=== PATIENT | female | born 1950 | race Caucasian/White ===

== ENCOUNTER → 2017-12-29 | Outpatient (CLI) | payer MEDICARE, OTHER | LOC: COL.PUL 12:40 | DX: R06.02 Shortness of breath (principal) | CPT/HCPCS: J7674 ==

== ENCOUNTER 2018-01-23 09:00 | Observation (INO) | payer MEDICARE, OTHER ==
[~2018-01-23] VITALS: Ht 182.9 cm; Wt 83.2 kg
[2018-01-23] VITALS (120 sets, daily range): BP systolic 141–170; BP diastolic 96–106; PULSE 85–108; TEMP 97.6–98; O2SAT 86–100
[2018-01-23] MEDS ORDERED: ELIQUIS 2.5 PO (09:57)
[2018-01-23] MEDS ORDERED: PLAVIX 75MG TAB75 MG PO (09:58)
[2018-01-23] MEDS ORDERED: VITAMIN D 1001000 IU PO (09:59)
[2018-01-23] MEDS ORDERED: ZOCOR 40MG40 MG PO (10:01)
[2018-01-23] MEDS ORDERED: FLEXERIL 1010 MG/TAB PO (10:01)
== END 2018-01-23 16:30 | disposition home or self-care (01) ==
LOC: ICU 09:00
DX: Z01.810 Encounter for preprocedural cardiovascular examination (principal); I73.9 Peripheral vascular disease, unspecified; J44.9 Chronic obstructive pulmonary disease, unspecified; I10 Essential (primary) hypertension; Z88.6 Allergy status to analgesic agent; Z79.01 Long term (current) use of anticoagulants; Z79.02 Long term (current) use of antithrombotics/antiplatelets; Z88.0 Allergy status to penicillin; Z88.8 Allergy status to other drugs, medicaments and biological substances; Z86.718 Personal history of other venous thrombosis and embolism; Z82.49 Family history of ischemic heart disease and other diseases of the circulatory system

== ENCOUNTER → 2018-02-14 | Outpatient (CLI) | payer MEDICARE, OTHER ==
[~2018-02-14] MED LIST: ELIQUIS 2.5 PO; FLEXERIL 1010 MG/TAB PO; PLAVIX 75MG TAB75 MG PO; VITAMIN D 1001000 IU PO; ZOCOR 40MG40 MG PO
[2018-02-14 15:30] LABS: HEMOGLOBIN 10.9 g/dl (12.5-16.0); MEAN CELL VOLUME 84 fl (80.0-100.0); MEAN CORPUSCULAR HEMOGLOBIN 27 pg (27.0-31.0); MEAN CORPUSCULAR HGB CONC 32 g/dl (33.0-37.0); MEAN PLATELET VOLUME 10.8 fl (7.4-10.4); PLATELET COUNT 339 K/mm3 (130-400); RED BLOOD COUNT 4.04 M/mm3 (4.10-5.30); REDCELL DISTRIBUTION WIDTH-CV 13.8 % (11.5-14.5)
[2018-02-14 15:39] LABS: ANION GAP 11 mmol/L (7-16); BLOOD UREA NITROGEN 13 mg/dL (7-17); CALCIUM 9.3 mg/dL (8.4-10.2); CARBON DIOXIDE 24 mmol/L (22-30); CHLORIDE 101 mmol/L (98-107); CREATININE, serum 0.69 mg/dL (0.52-1.25); GLUCOSE 93 mg/dL (74-106); POTASSIUM 3.9 mmol/L (3.4-5.0); SODIUM 136 mmol/L (137-145)
[2018-02-14 15:52] LABS: TROPONIN-I < 0.012 ng/mL (0.000-0.034)
[2018-02-14 16:28] LABS: HEMATOCRIT 34.1 % (37.0-47.0)
== END ==
LOC: COL.RAD 14:45
PROVIDERS: Internal Medicine Interventional Cardiology
DX: R06.02 Shortness of breath (principal); I77.4 Celiac artery compression syndrome
CPT/HCPCS: Q9967

== ENCOUNTER 2018-02-27 07:56 | Outpatient (RCR) | payer MEDICARE, OTHER ==
[2018-03-24] MEDS ORDERED: ELIQUIS 5MG PO (11:30)
[2018-03-24] MEDS ORDERED: NITROSTAT0.4 MG/TAB SL (11:31)
[2018-04-04] MEDS ORDERED: AMOXICILLIN 8751 TAB PO (19:49)
== END 2018-05-28 | disposition home or self-care (01) ==
LOC: WSST
DX: R13.12 Dysphagia, oropharyngeal phase (principal)
CPT/HCPCS: G8996-GN; G8997-GN

== ENCOUNTER → 2018-03-07 | Outpatient (CLI) | payer MEDICARE, OTHER | LOC: COL.RAD 08:14 | DX: R13.12 Dysphagia, oropharyngeal phase (principal) | CPT/HCPCS: G8996-GN; G8997-GN; G8998-GN ==

== ENCOUNTER 2018-03-23 11:48 | Day surgery (SDC) | payer MEDICARE, OTHER ==
[2018-03-23] VITALS (11 sets, daily range): BP systolic 105–148; BP diastolic 64–97; PULSE 63–98; TEMP 98–98.7
[~2018-03-23] VITALS: Ht 183 cm; Wt 79.8 kg
[2018-03-23 13:05] LABS: HEMOGLOBIN 10.4 g/dl (12.5-16.0); MEAN CELL VOLUME 81 fl (80.0-100.0); MEAN CORPUSCULAR HEMOGLOBIN 26 pg (27.0-31.0); MEAN CORPUSCULAR HGB CONC 31 g/dl (33.0-37.0); PLATELET COUNT 302 K/mm3 (130-400); RED BLOOD COUNT 4.07 M/mm3 (4.10-5.30); REDCELL DISTRIBUTION WIDTH-CV 14.3 % (11.5-14.5)
[2018-03-23 13:06] LABS: HEMATOCRIT 33.1 % (37.0-47.0)
[2018-03-23 13:10] LABS: INR 1.2 (0.8-3.0); PROTHROMBIN TIME 13.4 SECONDS (9.7-12.8)
[2018-03-23 13:20] LABS: CALCIUM 9.3 mg/dL (8.4-10.2); CREATININE, serum 0.74 mg/dL (0.52-1.25); POTASSIUM 4.1 mmol/L (3.4-5.0)
[2018-03-24 05:02] VITALS: BP 120/71; PULSE 96; TEMP 98.7
[2018-03-24 07:30] VITALS: BP 121/87; PULSE 91; TEMP 97.7
[2018-03-24 09:12] LABS: BASO # 0.1 (0.0-0.2); BASO % 0.8 % (0.0-2.0); EOS # 0.3 (0.0-0.7); EOS % 4.2 % (0-4.0); GRAN # 3.7 (1.4-6.5); GRAN % 56.8 % (42.2-75.2); HEMOGLOBIN 10.5 g/dl (12.5-16.0); LYMPH # 1.9 (1.2-3.4); LYMPH % 28.9 % (20.0-51.0); MEAN CELL VOLUME 81 fl (80.0-100.0); MEAN CORPUSCULAR HEMOGLOBIN 26 pg (27.0-31.0); MEAN CORPUSCULAR HGB CONC 32 g/dl (33.0-37.0); MEAN PLATELET VOLUME 10.8 fl (7.4-10.4); MONO # 0.6 (0.1-0.6); PLATELET COUNT 313 K/mm3 (130-400); REDCELL DISTRIBUTION WIDTH-CV 14.5 % (11.5-14.5)
[2018-03-24 09:14] LABS: HEMATOCRIT 33.2 % (37.0-47.0)
[2018-03-24 09:22] LABS: CALCIUM 9.2 mg/dL (8.4-10.2); CREATININE, serum 0.71 mg/dL (0.52-1.25); POTASSIUM 4.1 mmol/L (3.4-5.0)
[2018-03-24] MEDS ORDERED: ELIQUIS 5MG PO (11:30)
[2018-03-24] MEDS ORDERED: NITROSTAT0.4 MG/TAB SL (11:31)
== END 2018-03-24 12:33 | disposition home or self-care (01) ==
LOC: COL.CAR 11:48 → MEDICAL 17:11 → COL.CAR 17:11 → MEDICAL 17:12 → COL.CAR 03-24 12:33
PROVIDERS: Internal Medicine Cardiovascular Disease; Internal Medicine Interventional Cardiology
DX: I25.110 Atherosclerotic heart disease of native coronary artery with unstable angina pectoris (principal); I73.9 Peripheral vascular disease, unspecified; Z82.49 Family history of ischemic heart disease and other diseases of the circulatory system; I10 Essential (primary) hypertension; Z86.718 Personal history of other venous thrombosis and embolism; J44.9 Chronic obstructive pulmonary disease, unspecified; E78.5 Hyperlipidemia, unspecified; Z79.01 Long term (current) use of anticoagulants; Z88.8 Allergy status to other drugs, medicaments and biological substances; Z79.899 Other long term (current) drug therapy
CPT/HCPCS: C9600; J1644; J2250; J3010; Q9967

== ENCOUNTER 2018-03-27 16:53 | Emergency (ER) | payer MEDICARE, OTHER ==
[~2018-03-27] VITALS: Ht 182.9 cm; Wt 79.5 kg
[~2018-03-27 16:53] MED LIST changes: +ELIQUIS 5MG PO; +NITROSTAT0.4 MG/TAB SL
[2018-03-27 17:05] VITALS: TEMP 97.8
[2018-03-27 17:35] LABS: COLLECTION METHOD CLEAN CATCH
[2018-03-27 17:40] LABS: BASO # 0.1 (0.0-0.2); BASO % 0.7 % (0.0-2.0); EOS # 0.3 (0.0-0.7); EOS % 3.7 % (0-4.0); GRAN % 60.6 % (42.2-75.2); LYMPH # 2.2 (1.2-3.4); LYMPH % 26.3 % (20.0-51.0); MEAN CELL VOLUME 82 fl (80.0-100.0); MEAN CORPUSCULAR HEMOGLOBIN 25 pg (27.0-31.0); MEAN CORPUSCULAR HGB CONC 31 g/dl (33.0-37.0); MONO # 0.7 (0.1-0.6); MONO % 8.6 % (1.7-9.3); PLATELET COUNT 350 K/mm3 (130-400); RED BLOOD COUNT 4.35 M/mm3 (4.10-5.30); REDCELL DISTRIBUTION WIDTH-CV 14.3 % (11.5-14.5)
[2018-03-27 17:41] LABS: HEMATOCRIT 35.5 % (37.0-47.0)
[2018-03-27 17:45] LABS: MUCOUS Present /lpf; PH 6 (5-8); SQUAMOUS EPITHELIAL None Seen /hpf; URINE APPEARANCE Clear; URINE BACTERIA None Seen /hpf; URINE BILIRUBIN Negative (NEGATIVE); URINE BLOOD Negative (NEGATIVE); URINE COLOR Yellow; URINE GLUCOSE Negative (NEGATIVE); URINE KETONE Negative (NEGATIVE); URINE LEUKOCYTE ESTERASE Negative (NEGATIVE); URINE NITRATE Negative (NEGATIVE); URINE PROTEIN(semi-quant) Negative (NEGATIVE); URINE RBC 0-2 /hpf; URINE UROBILINOGEN Negative (NEGATIVE)
[2018-03-27 17:54] LABS: ALBUMIN 4.4 gm/dL (3.5-5.0); BILIRUBIN,TOTAL 0.2 mg/dL (0.0-1.0); CALCIUM 9.7 mg/dL (8.4-10.2); CREATININE, serum 0.79 mg/dL (0.52-1.25); POTASSIUM 3.9 mmol/L (3.4-5.0); TOTAL PROTEIN 7.5 gm/dL (6.4-8.2)
[2018-03-27 18:06] LABS: TROPONIN-I 0.028 ng/mL (0.000-0.034)
[2018-03-27 20:20] VITALS: BP 140/106; PULSE 118
[2018-03-27 20:37] LABS: TRICYCLIC ANTIDEPRESS URINE NEGATIVE
== END 2018-03-27 20:20 | disposition home or self-care (01) ==
LOC: COL.ER 16:53
PROVIDERS: Emergency Medicine
DX: R00.0 Tachycardia, unspecified (principal); Z86.718 Personal history of other venous thrombosis and embolism; Z86.711 Personal history of pulmonary embolism; Z95.5 Presence of coronary angioplasty implant and graft; Z79.02 Long term (current) use of antithrombotics/antiplatelets; Z79.01 Long term (current) use of anticoagulants; Z88.0 Allergy status to penicillin; Z88.6 Allergy status to analgesic agent; Z88.5 Allergy status to narcotic agent
CPT/HCPCS: Q9967

== ENCOUNTER 2018-04-04 17:55 | Emergency (ER) | payer MEDICARE, OTHER ==
[~2018-04-04] VITALS: Ht 182.9 cm; Wt 81.4 kg
[2018-04-04 17:58] VITALS: TEMP 98.3
[2018-04-04] MEDS ORDERED: AMOXICILLIN 8751 TAB PO (19:49)
[2018-04-04 20:12] VITALS: BP 147/109; PULSE 98
== END 2018-04-04 20:10 | disposition home or self-care (01) ==
LOC: COL.ER 17:55
DX: S01.551A Open bite of lip, initial encounter (principal); Z23 Encounter for immunization; Z79.01 Long term (current) use of anticoagulants; Z86.711 Personal history of pulmonary embolism; W54.0XXA Bitten by dog, initial encounter

== ENCOUNTER → 2019-03-29 | Outpatient (CLI) | payer MEDICARE, OTHER ==
[2019-03-29] VITALS (8 sets, daily range): BP systolic 141–168; BP diastolic 90–100; PULSE 57–66
[~2019-03-29] VITALS: Ht 182.9 cm; Wt 83.5 kg
[~2019-03-29] MED LIST changes: +AMOXICILLIN 8751 TAB PO; +BIOTIN2500 MCG PO; +FERROUS SU325 MG/TAB; +MULTI VITAMINS1 TAB PO; +NASAREL0.025 MG/1 NAS; +PRILOSEC 20MG20 MG PO; +PROAIR HFA0.09 MG/AC IH; +TYLENOL PM EXTR1 TA1 PO; +VITAMIN C500 MG PO
[2019-03-29 09:42] LABS: INR 0.9 (0.8-3.0); PROTHROMBIN TIME 10.3 SECONDS (9.7-12.8)
--- NOTE | 2019-03-29 10:15 | NUR ---
pt in ultrasound room, waiting for Radiologist
--- NOTE | 2019-03-29 10:35 | NUR ---
procedure started by Dr Al
--- NOTE | 2019-03-29 10:45 | NUR ---
procedure finished, liver tissue in formulin, taken to lab.pressure applied over site as instructed and bandaid on
== END ==
LOC: COL.RAD 03-14 11:45
PROVIDERS: Internal Medicine Gastroenterology
DX: K74.5 Biliary cirrhosis, unspecified (principal)

== ENCOUNTER 2019-07-25 11:31 | Day surgery (SDC) | payer MEDICARE, OTHER ==
[~2019-07-25] VITALS: Ht 182.9 cm; Wt 83.2 kg
[2019-07-25] VITALS (7 sets, daily range): BP systolic 115–152; BP diastolic 69–89; PULSE 65–81; TEMP 97.8–98.5
[2019-07-25] MEDS ORDERED: ATROVENT NASAL15 ML NS (14:08)
--- NOTE | 2019-07-25 16:00 | NUR ---
Patient returns to room 5 per cart from PACU accompanied by Elva GIVENS. Patient is restless and complains of being hot. Cool cloth on forehead and patient takes the ice bag off of the knee and places it on her head. Brijesh wrap dressing dry on the right leg. IV fluids infusing. Call light in reach and spouse in room.
--- NOTE | 2019-07-25 16:15 | NUR ---
Sipping on Sprite and continues to be restless and c/o being hot. Spouse in room.
--- NOTE | 2019-07-25 16:30 | NUR ---
Complains of stomach hurting. Denies nausea. Offered antiemetic and refuses. Continues to sip on Sprite. Spouse in room. Resting more comfortable now. States that she wants to go home. Instructed that she must eat and void prior to discharge.
--- NOTE | 2019-07-25 16:45 | NUR ---
Assisted up to the bathroom with use of crutches and is able to transfer self. Voids and returns to room. Takes bites of crackers. Continues to state that she wants to go home and sleep.
[2019-07-25] MEDS ORDERED: NORCO 325 MG-51 TAB PO (17:01)
--- NOTE | 2019-07-25 17:15 | NUR ---
Less restless. Tolerated few bites of crackers and sprite. States her stomach is getting better. Brijesh wrap dressing on the right knee dry. IV discontinued. States I want to go home and sleep.
--- NOTE | 2019-07-25 17:25 | NUR ---
Patient dresses self. Given dismissal instructions and voices understanding of these. Provided script for Physical therapy. Spouse filled [place] script with patient in surgery. Patient assisted into wheelchair and dismissed to home driven by spouse and taken to the front door per wheelchair and assisted into car. Patient did have small amount of emesis in elevator and states that her stomach feels better.
== END 2019-07-25 17:25 | disposition home or self-care (01) ==
LOC: SDCO 11:31
DX: S83.241A Other tear of medial meniscus, current injury, right knee, initial encounter (principal); M11.261 Other chondrocalcinosis, right knee; M94.261 Chondromalacia, right knee; M19.90 Unspecified osteoarthritis, unspecified site; J45.909 Unspecified asthma, uncomplicated; I25.10 Atherosclerotic heart disease of native coronary artery without angina pectoris; K21.9 Gastro-esophageal reflux disease without esophagitis; D64.9 Anemia, unspecified; Z82.5 Family history of asthma and other chronic lower respiratory diseases; Z79.01 Long term (current) use of anticoagulants; Z79.02 Long term (current) use of antithrombotics/antiplatelets; Z88.6 Allergy status to analgesic agent; Z88.0 Allergy status to penicillin; Z86.711 Personal history of pulmonary embolism; Z86.718 Personal history of other venous thrombosis and embolism; Z87.891 Personal history of nicotine dependence; Z82.49 Family history of ischemic heart disease and other diseases of the circulatory system; Z82.61 Family history of arthritis; Z88.8 Allergy status to other drugs, medicaments and biological substances; Z91.018 Allergy to other foods
CPT/HCPCS: J1100; J1170; J2405; J2704; J3010; J7120

== ENCOUNTER 2019-10-08 14:47 | Emergency (ER) | payer MEDICARE, OTHER ==
[~2019-10-08] VITALS: Ht 182.9 cm; Wt 77.3 kg
[~2019-10-08 14:47] MED LIST changes: +ATROVENT NASAL15 ML NS; +NORCO 325 MG-51 TAB PO
[2019-10-08 15:06] VITALS: TEMP 98.5
[2019-10-08 16:08] VITALS: BP 140/95; PULSE 82
== END 2019-10-08 16:15 | disposition home or self-care (01) ==
LOC: COL.ER 14:47
DX: S81.811A Laceration without foreign body, right lower leg, initial encounter (principal); Z79.01 Long term (current) use of anticoagulants; Z79.02 Long term (current) use of antithrombotics/antiplatelets; Z86.711 Personal history of pulmonary embolism; W22.8XXA Striking against or struck by other objects, initial encounter; Y92.009 Unspecified place in unspecified non-institutional (private) residence as the place of occurrence of the external cause

== ENCOUNTER → 2020-02-28 | Outpatient (CLI) | payer MEDICARE, OTHER ==
[2020-02-28 12:27] LABS: INR 1.2 (0.8-3.0); PROTHROMBIN TIME 12.9 SECONDS (9.7-12.8)
== END ==
LOC: COL.LAB 12:04
PROVIDERS: Internal Medicine Interventional Cardiology
DX: Z79.01 Long term (current) use of anticoagulants (principal)

== ENCOUNTER 2020-07-19 18:39 | Emergency (ER) | payer MEDICARE, OTHER ==
[~2020-07-19] VITALS: Ht 182.9 cm; Wt 77.3 kg
[2020-07-19 18:44] VITALS: TEMP 97.8
[2020-07-19] MEDS ORDERED: VESICARE10 MG PO (19:49)
[2020-07-19] MEDS ORDERED: REPATHA SU140 MG/1 M SQ (19:49)
[2020-07-19 20:39] VITALS: BP 148/96; PULSE 96
== END 2020-07-19 20:42 | disposition home or self-care (01) ==
LOC: COL.ER 18:39
DX: S80.212A Abrasion, left knee, initial encounter (principal); S60.511A Abrasion of right hand, initial encounter; S00.31XA Abrasion of nose, initial encounter; M54.2 Cervicalgia; Z98.61 Coronary angioplasty status; Z86.718 Personal history of other venous thrombosis and embolism; Z86.711 Personal history of pulmonary embolism; Z23 Encounter for immunization; Z88.0 Allergy status to penicillin; Z88.5 Allergy status to narcotic agent; Z88.6 Allergy status to analgesic agent; Z88.8 Allergy status to other drugs, medicaments and biological substances; Z79.01 Long term (current) use of anticoagulants; Z79.02 Long term (current) use of antithrombotics/antiplatelets; W01.10XA Fall on same level from slipping, tripping and stumbling with subsequent striking against unspecified object, initial encounter; Y93.K1 Activity, walking an animal; Y92.480 Sidewalk as the place of occurrence of the external cause

== ENCOUNTER 2020-10-15 05:29 | Day surgery (SDC) | payer MEDICARE, OTHER ==
[~2020-10-15] VITALS: Ht 182.9 cm; Wt 80.1 kg
[2020-10-15] VITALS (11 sets, daily range): BP systolic 108–129; BP diastolic 60–86; PULSE 77–93; TEMP 97.3–98
[~2020-10-15 05:29] MED LIST changes: +REPATHA SU140 MG/1 M SQ; +VESICARE10 MG PO
[2020-10-15] MEDS ORDERED: LEVSIN0.125 M1 PO (06:34)
[2020-10-15] MEDS ORDERED: NORVASC2.5 MG PO (06:35)
[2020-10-15] MEDS ORDERED: FLOVENT 110MCG7.9 GM IH (06:36)
[2020-10-15] MEDS ORDERED: BRILINTA60 MG PO (06:36)
[2020-10-15] MEDS ORDERED: NORCO 325 MG-51 TAB PO (08:36)
[2020-10-15] MEDS ORDERED: COLACE 100100 MG/CAP PO (08:36)
--- NOTE | 2020-10-15 10:30 | NUR ---
Patient received post op. Report from Alyssa. Patient vitals stable post op on room air. Ivf per orders. Veronica to DD, pale yellow urine. Mesh underwear with pericad. Low transverse incision gauze CDI. Scds ble. Tolerating clear liquids, showed her the menu, no interst in food at this time. Pain elevated. Tyelnol per orders.
--- NOTE | 2020-10-15 11:00 | NUR ---
Called to discuss patient pain, orders obtained & medication given per orders. Pain in her in low abdomen. ice pack to site & splinting with pillow.
--- NOTE | 2020-10-15 12:19 | NUR ---
Patient resting in bed. Feeling much better after toradol. rounded. Vss on room air. Scds ble.
--- NOTE | 2020-10-15 16:14 | NUR ---
Patient assisted up to chair. One assist. Pain elevated with movement. Ultram & tylenol for pain. Continues to tolerate liquids, no solid food yet. Adequate urine outut.
--- NOTE | 2020-10-15 18:43 | NUR ---
Patient sitting up in bed. Eating a salad. Her at bedside. Great urine output from willett. New mesh underwear & peripad. Low transverse incisions dressing CDI. Ultram relieved pain. She sat up in the chair for awhile & tolerated, but it did increase her pelvic pressure. Bedside report to Constanza GIVENS
--- NOTE | 2020-10-15 20:00 | NUR ---
Pt in bed, is alert and oriented x4. Has IVF infusing to left wrist, no redness or swelling. Has willett to BSD with yellow urine, wearing mesh panties with peripad, scant drainage noted on pad. Incision D/I. Denies need for pain meds at this time.
[2020-10-16 00:12] VITALS: BP 121/80; PULSE 69; TEMP 98.5
--- NOTE | 2020-10-16 00:20 | NUR ---
Medicated with Tramadol 50mg po for right shoulder pain.
[2020-10-16 05:15] VITALS: BP 118/72; PULSE 60; TEMP 97.7
--- NOTE | 2020-10-16 05:58 | NUR ---
DC'd willett catheter after deflating balloon, tolerated without problem. DC'd vaginal packing at this time as well. Minimal drainage on VPad. Instructed pt to call after each void to have bladder scan done. Verbalized understanding.
--- NOTE | 2020-10-16 06:05 | NUR ---
Medicated with Tramadol 50mg po for lower abd pain.
[2020-10-16 07:10] VITALS: BP 146/85; PULSE 63; TEMP 97.6
--- NOTE | 2020-10-16 08:00 | NUR ---
PATIENT IS A&O. VSS. C/O PELVIC/RECTAL DISCOMFORT RATED AT 5/10. PATIENT GIVEN PAIN MEDS BY CAREER TECHNICAL SUPERVISOR BEFORE MITCHELL AND VAG PACKING WERE REMOVED AROUND 0600. PATIENT VOIDED 250CC OF CLEAR YELLOW URINE WITH TWO SMALL MICRO-SIZED TISSUE CLOTS NOTED. POST VOID BLADDER SCAN WAS 115CC. PATIENT EAT/DRINKING SUFFICENT AMOUNTS. LEFT WRIST IV TO INT. NO C/O N/V. HEAD TO TOE ASSESSMENT WNL. STUDENT NURSE WORKING WITH PATIENT TODAY, SEE STUDENT CHARTING. CALL LIGHT IN REACH. NO OTHER NEEDS.
--- NOTE | 2020-10-16 09:30 | NUR ---
PATIENT REPORTS FEELING PULLING AND DISCOMFORT IN PELVIC FLOOR AFTER PUTTING ON PANTS. PATIENT EDUCATED ABOUT POST OP RECTUS FASCIA AND ENCOURAGED TO SIT DOWN WITH DRESSING AND LOG ROLL TO GET OUT OF BED. PATIENT VERBALIZED UNDERSTANDING. STUDENT NURSE GIVING IV TORADOL BEFORE TAKING OUT IV SITE FOR PENDING DISCHARGE. PATIENT IS DOING WELL OVERALL. POST VOID RESIDUALS HAVE ALL BEEN LESS THAN HALF OF THE VOIDED VOLUME. PATIENT INDEPENDENT IN ROOM. NO OTHER NEEDS.
--- NOTE | 2020-10-16 12:15 | NUR ---
PATIENT DISCHARGING HOME VIA WC TO PERSONAL VEHICLE WITH . GAVE DISCHARGE INSTRUCTIONS, PRESCRIPTION AND DISCUSSED F/U APT. ANSWERED QUESTIONS/CONCERNS. STUDENT NURSE HECTOR'Marylin IV, COVERED SITE WITH BANDAID. PATIENT DISCHARGED WITH PERSONAL BELONGINGS.
[2021-04-09] MEDS ORDERED: CEFTIN 250250 MG/TAB PO ×3 (16:39→17:28)
[2021-04-09] MEDS ORDERED: NORCO 325 MG-51 TAB PO (16:51)
== END 2020-10-16 12:15 | disposition home health service (06) ==
LOC: SDCO 05:29 → SURG 10:18 → SDCO 10-16 12:15
DX: N36.42 Intrinsic sphincter deficiency (ISD) (principal); N39.3 Stress incontinence (female) (male); R10.2 Pelvic and perineal pain; J44.9 Chronic obstructive pulmonary disease, unspecified; K21.9 Gastro-esophageal reflux disease without esophagitis; I25.10 Atherosclerotic heart disease of native coronary artery without angina pectoris; E78.5 Hyperlipidemia, unspecified; I73.9 Peripheral vascular disease, unspecified; Z87.891 Personal history of nicotine dependence; Z88.5 Allergy status to narcotic agent; Z88.0 Allergy status to penicillin; Z88.8 Allergy status to other drugs, medicaments and biological substances; Z95.5 Presence of coronary angioplasty implant and graft; Z86.711 Personal history of pulmonary embolism; Z86.718 Personal history of other venous thrombosis and embolism; Z79.899 Other long term (current) drug therapy; Z95.818 Presence of other cardiac implants and grafts
CPT/HCPCS: OP; A4314; C1762; J0690; J1100; J1885; J2270; J2370; J2405; J2704; J2710; J3010; J7120

== ENCOUNTER → 2021-05-29 | Outpatient (CLI) | payer MEDICARE, OTHER ==
[~2021-05-29] MED LIST changes: +BRILINTA60 MG PO; +CEFTIN 250250 MG/TAB PO; +COLACE 100100 MG/CAP PO; +FLOVENT 110MCG7.9 GM IH; +LEVSIN0.125 M1 PO; +NORVASC2.5 MG PO
[2021-05-29 13:25] LABS: CREATININE, serum 0.82 mg/dL (0.57-1.11)
== END ==
LOC: COL.LAB 12:41
DX: R31.0 Gross hematuria (principal); R10.32 Left lower quadrant pain

== ENCOUNTER → 2021-06-03 | Outpatient (CLI) | payer MEDICARE, OTHER | LOC: COL.RAD 07:28 | DX: R10.32 Left lower quadrant pain (principal); R31.0 Gross hematuria | CPT/HCPCS: Q9967 ==

== ENCOUNTER 2021-09-29 16:14 | Inpatient (IN) | payer MEDICARE, OTHER ==
[~2021-09-29] VITALS: Ht 185.4 cm; Wt 81.3 kg
[2021-09-29 17:09] LABS: BASO # 0.1 K/mm3 (0.0-0.2); BASO % 0.5 % (0.0-2.0); EOS # 0.3 K/mm3 (0.0-0.7); EOS % 2.8 % (0.0-4.0); GRAN # 6.7 K/mm3 (1.4-6.5); GRAN % 69.6 % (42.2-75.2); HEMATOCRIT 40.4 % (37.0-47.0); HEMOGLOBIN 13.2 g/dl (12.5-16.0); LYMPH # 1.8 K/mm3 (1.2-3.4); MEAN CELL VOLUME 84 fl (80.0-100.0); MEAN CORPUSCULAR HEMOGLOBIN 27 pg (27-31); MEAN CORPUSCULAR HGB CONC 33 g/dl (33.0-37.0); MEAN PLATELET VOLUME 10.8 fl (7.4-10.4); MONO # 0.8 K/mm3 (0.1-0.6); MONO % 7.8 % (1.7-9.3); PLATELET COUNT 251 K/mm3 (130-400); RED BLOOD COUNT 4.82 M/mm3 (4.10-5.30); REDCELL DISTRIBUTION WIDTH-CV 16.8 % (11.5-14.5)
[2021-09-29 17:15] LABS: INR 1.5 (0.8-3.0); PROTHROMBIN TIME 16.5 SECONDS (9.7-12.8)
[2021-09-29 17:29] LABS: ALANINE AMINOTRANSFERASE 11 U/L (0-55); ALBUMIN 3.8 gm/dL (3.4-4.8); ALKALINE PHOSPHATASE 127 U/L (40-150); ANION GAP 11 mmol/L (7-16); AST,SGOT 19 U/L (5-34); BILIRUBIN,TOTAL 0.6 mg/dL (0.2-1.2); BLOOD UREA NITROGEN 10 mg/dL (10-20); CALCIUM 9.2 mg/dL (8.4-10.2); CARBON DIOXIDE 20 mmol/L (23-31); CHLORIDE 108 mmol/L (98-107); CREATINE KINASE 56 U/L (29-168); CREATININE, serum 0.86 mg/dL (0.57-1.11); GLUCOSE 97 mg/dL (70-99); POTASSIUM 4.1 mmol/L (3.5-4.5); SODIUM 139 mmol/L (136-145)
[2021-09-29 17:38] LABS: TROPONIN-I < 0.010 ng/mL (0.00-0.033)
[2021-09-29] MEDS ORDERED: BRILINTA60 MG PO (20:17)
[2021-09-29] MEDS ORDERED: PRIL40 PO (20:18)
[2021-09-29] MEDS ORDERED: ELIQUIS 5MG PO (20:18)
[2021-09-29 23:53] VITALS: BP 146/86; PULSE 92; TEMP 98.2
[2021-09-30 04:34] VITALS: BP 117/67; PULSE 98; TEMP 98
--- NOTE | 2021-09-30 06:08 | NUR ---
PT ARRIVED TO MEDICAL FLOOR AT 2205HRS TO [id number]. PT A&O X 4; VSS; O2 RA. PT DENIED CHEST PAIN, N,V,D OR DIZZINESS. PT DOES HAVE SOME LABORED BREATHING. PT DID COMPLAIN OF BACK PAIN AROUND 0530HRS SHE RATED A 7. PT REQUESTED AND GIVEN TYLENOL FOR PAIN. ADMISSIONS ASSESSMENT AND MED REC COMPLETE. PT ORIENTED TO ROOM AND HOSPITAL POLICY. POC DISCUSSED WITH PT. PT VERBALIZED UNDERSTANDING. ALL QUESTIONS AND CONCERNS ADDRESSED. PT EXPRESSED NO OTHER NEEDS AT THIS TIME. CALL LIGHT WITHIN REACH.
[2021-09-30 08:00] VITALS: BP 153/85; PULSE 110; TEMP 97.7
--- NOTE | 2021-09-30 08:59 | NUR ---
SW met with the patient to discuss discharge plan. The patient lives in [place] with her , Zachariah (ph#[phone]). She reports independence with ADLs and does not have any DME. 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 The patient's PCP is Dr. Gamboa on [facility] and she receives her medications from [facility]. The patient does not have a DPOA-HC and she was not interested in completing one at this time. The patient plans on returning home with her upon discharge. No additional needs at this time. *Discharge plan: home with *
--- NOTE | 2021-09-30 09:20 | NUR ---
Shift assessment complete. Pt A&Ox4. Heart RRR. Lungs coarse to auscultation. Breathing shallow and labored at times. Pt denies SOA. Says she feels better and would like to go home. Hospitalist aware. Continuing to monitor.
[2021-09-30 12:00] VITALS: BP 141/78; PULSE 119; TEMP 97.6
--- NOTE | 2021-09-30 13:20 | NUR ---
First visit from the cotton picking machine operator. No needs right now.
[2021-09-30] MEDS ORDERED: VESICARE10 MG PO (14:45)
[2021-09-30 16:00] VITALS: BP 170/89; PULSE 117; TEMP 97.7
[2021-09-30 16:53] VITALS: BP 170/92
[2021-09-30 20:15] VITALS: BP 140/93; PULSE 118; TEMP 97.7
[2021-10-01] VITALS (8 sets, daily range): BP systolic 133–154; BP diastolic 52–98; PULSE 91–114; TEMP 96.5–98
--- NOTE | 2021-10-01 03:14 | NUR ---
ASSESSMENT COMPLETE FOR THIS SHIFT. PT RESTING IN BED TEXTING HER PARENTS ON THE PHONE. PT DENIED PAIN, PALPITATIONS, N,V,D OR DIZZINESS. PT DID HAVE SOME SOB, COUGH AND A HEART RATE IN THE ONE-TEEN'S (HR 118, ETC.). HOSPITALIST CALLED, EKG ORDERED. PT'S LAST HR 99. WHEN ASKED HOW SHE WAS FEELING, PT RESPONSED, SHE FELT ABOUT THE SAME WHEN SHE WAS FIRST ADMITTED TO THE HOSPITAL. WILL CONTINUE TO MONITOR HEART RATE. PT EXPRESSED NO OTHER NEEDS AT THIS TIME. CALL LIGHT WITHIN REACH.
[2021-10-01 06:24] LABS: HEMOGLOBIN 11.7 g/dl (12.5-16.0); MEAN CELL VOLUME 84 fl (80.0-100.0); MEAN CORPUSCULAR HEMOGLOBIN 28 pg (27-31); MEAN CORPUSCULAR HGB CONC 33 g/dl (33.0-37.0); MEAN PLATELET VOLUME 11.1 fl (7.4-10.4); PLATELET COUNT 256 K/mm3 (130-400); RED BLOOD COUNT 4.24 M/mm3 (4.10-5.30); REDCELL DISTRIBUTION WIDTH-CV 17.2 % (11.5-14.5)
[2021-10-01 06:36] LABS: CREATININE, serum 0.75 mg/dL (0.57-1.11)
[2021-10-01 07:08] LABS: HEMATOCRIT 35.7 % (37.0-47.0)
[2021-10-01 09:10] LABS: BAND 9 % (0-10); LYMPHOCYTE 6 % (20.0-51.0); NEUTROPHILS 84 % (42.0-75.2); PLATELET ESTIMATE NORMAL (NORMAL)
--- NOTE | 2021-10-01 10:27 | NUR ---
Initial visit; Patient thanked Auto Polisher for looking in on her and offering encouragement and prayer. Patient is feeling quite ill. Auto Polisher will look in on her again tomorrow.
[2021-10-02 04:35] VITALS: BP 121/65; PULSE 68; TEMP 98.5
[2021-10-02 05:42] LABS: HEMATOCRIT 38.2 % (37.0-47.0); HEMOGLOBIN 12.2 g/dl (12.5-16.0); MEAN CELL VOLUME 87 fl (80.0-100.0); MEAN CORPUSCULAR HEMOGLOBIN 28 pg (27-31); MEAN CORPUSCULAR HGB CONC 32 g/dl (33.0-37.0); MEAN PLATELET VOLUME 11.1 fl (7.4-10.4); PLATELET COUNT 274 K/mm3 (130-400); RED BLOOD COUNT 4.39 M/mm3 (4.10-5.30); REDCELL DISTRIBUTION WIDTH-CV 17.3 % (11.5-14.5)
--- NOTE | 2021-10-02 06:00 | NUR ---
ASSESSMENT COMPLETE FOR THIS SHIFT. PT RESTING IN BED WATCHING TV AND PLAYING A GAME ON HER PHONE. PT COMPLAINED OF SOME DIZZINESS AFTER HER BREATHING TREATMENT, WHICH RESOLVED QUICKLY. PT ALSO COMPLAINED OF BACK PAIN AROUND 2345HRS. PT GIVEN TYLENOL PER REQUEST. PT FELT THE TYLENOL WAS EFFECTIVE. PT DENIED PALPITATIONS, N,V,D. PT EXPRESSED NO OTHER NEEDS AT THIS TIME. CALL LIGHT WITHIN REACH.
[2021-10-02 06:05] LABS: CREATININE, serum 0.75 mg/dL (0.57-1.11); POTASSIUM 4.2 mmol/L (3.5-4.5)
[2021-10-02 06:24] LABS: ANISOCYTOSIS 1+; BAND 2 % (0-10); LYMPHOCYTE 10 % (20.0-51.0); NEUTROPHILS 86 % (42.0-75.2); PLATELET ESTIMATE NORMAL (NORMAL)
[2021-10-02 06:28] LABS: TSH w REFLEX 0.22 uIU/mL (0.350-4.940)
[2021-10-02 09:02] VITALS: BP 156/98; PULSE 103; TEMP 97.9
--- NOTE | 2021-10-02 09:14 | NUR ---
Patient doing well this morning and does not have any complaints. Patient given all morning medications w/o any difficulty. Patient denies and SOB or chest pain.
--- NOTE | 2021-10-02 10:41 | NUR ---
PT DOES NOT REQUIRE 02 WITH AMBULATION
[2021-10-02] MEDS ORDERED: DOXYCYCLINE 10100 MG PO (12:21)
[2021-10-02] MEDS ORDERED: AYR SALINE MIST50 ML NS (12:22)
[2021-10-02] MEDS ORDERED: MEDROL 4MG DOSPA4 MG PO (12:23)
--- NOTE | 2021-10-02 14:25 | NUR ---
An exercise oximetry was ordered. RT notified SW that the patient did not qualify for oxygen. The patient is ready to discharge today, 10/02. SW met with the patient and presented and read the IM form outloud to her. The patient verbalized understanding and signed the form. SW provided her with a copy. No additional needs at this time.
[2021-10-02 14:31] VITALS: BP 162/88; PULSE 90; TEMP 98.2
--- NOTE | 2021-10-02 15:47 | NUR ---
Patient discharged home by this RN. IV removed, initially no bleeding was present after holding pressure for approx. 2mins. Once patient started moving around, IV site began bleeding. Patient's gown did have a moderate amount of blood on it. Patient denied any dizziness, syncope, and patient was A&Ox4. Patient escorted out by PCT.
== END 2021-10-02 15:30 | disposition home or self-care (01) | DRG 194 ==
LOC: COL.ER 16:14 → MEDICAL 19:05
PROVIDERS: Emergency Medicine; Physician Assistant; ADMIT Student in an Organized Health Care Education/Training Program
DX: J12.3 Human metapneumovirus pneumonia (principal); J45.901 Unspecified asthma with (acute) exacerbation; I73.9 Peripheral vascular disease, unspecified; I10 Essential (primary) hypertension; K21.9 Gastro-esophageal reflux disease without esophagitis; D72.829 Elevated white blood cell count, unspecified; T38.0X5A Adverse effect of glucocorticoids and synthetic analogues, initial encounter; K76.9 Liver disease, unspecified; Z86.711 Personal history of pulmonary embolism; Z86.718 Personal history of other venous thrombosis and embolism; Z79.01 Long term (current) use of anticoagulants; Z87.442 Personal history of urinary calculi; Z87.891 Personal history of nicotine dependence; B94.8 Sequelae of other specified infectious and parasitic diseases
CPT/HCPCS: 99223-AI; 99232-AI; 99233-AI; 99239; J0696; J2920; J2930; J7030; Q9967

== ENCOUNTER → 2021-10-05 | Outpatient (CLI) | payer MEDICARE, OTHER ==
[~2021-10-05] MED LIST changes: +AYR SALINE MIST50 ML NS; +DOXYCYCLINE 10100 MG PO; +MEDROL 4MG DOSPA4 MG PO; +PRIL40 PO
[2021-10-05 15:14] LABS: CALCIUM 8.9 mg/dL (8.4-10.2); CREATININE, serum 0.86 mg/dL (0.57-1.11); MAGNESIUM 1.8 mg/dL (1.6-2.6); POTASSIUM 3.6 mmol/L (3.5-4.5)
== END ==
LOC: COL.LAB 14:28
PROVIDERS: Internal Medicine
DX: J18.9 Pneumonia, unspecified organism (principal)

== ENCOUNTER 2022-12-25 06:40 | Emergency (ER) | payer MEDICARE, OTHER ==
[~2022-12-25] VITALS: Ht 190.5 cm; Wt 79.1 kg
[~2022-12-25 06:40] MED LIST changes: +ASPERCREME1 EACH TP; +ROXICODONE 55 MG/TAB PO
[2022-12-25] MEDS ORDERED: NORCO 325 MG-51 TAB PO (07:23)
[2022-12-25] MEDS ORDERED: PREDNISONE10 MG PO (07:23)
[2022-12-25 07:55] VITALS: BP 150/89; PULSE 72; TEMP 97.5
== END 2022-12-25 07:55 | disposition home or self-care (01) ==
LOC: COL.ER 06:40
DX: M25.562 Pain in left knee (principal); Z86.718 Personal history of other venous thrombosis and embolism; Z86.711 Personal history of pulmonary embolism; Z79.01 Long term (current) use of anticoagulants; Z79.02 Long term (current) use of antithrombotics/antiplatelets; Z86.16 Personal history of COVID-19; Z88.5 Allergy status to narcotic agent; Z88.6 Allergy status to analgesic agent; W01.0XXA Fall on same level from slipping, tripping and stumbling without subsequent striking against object, initial encounter